=== PATIENT | female | born 1975 | race Caucasian/White ===

== ENCOUNTER 2018-06-02 10:06 | Emergency (ER) | payer OTHER ==
[2018-06-02] MEDS ORDERED: NS 1,000 ML IV ONE (10:21)
[2018-06-02] MEDS ORDERED: CLINDAMYCIN 600 MG/DEXTROSE 50 ML IV ONE (10:24)
[2018-06-02] MEDS ORDERED: DEXAMETHASONE 10 MG/ML VIAL IVP ONE (10:24)
--- NOTE | 2018-06-02 10:24 | EDPHY ---
H & P Stated Complaint: l lower molar inf/needs root cnal on abx continuing malaise and fever Time Seen by Provider: 06/02/18 10:13 HPI/ROS: CHIEF COMPLAINT: Possible dental infection HISTORY OF PRESENT ILLNESS: 43-year-old immunocompetent female states that 3 days ago she was seen by her dentist for concerns over left mandibular pain, swelling, they recommend she go to the ER at that time which she declined. She is given Augmentin. Since yesterday afternoon she notes subjective fever, flu- like symptoms. No influenza vaccination this season. The edema of the left submandibular space continues. No change in voice. No trismus no drooling. REVIEW OF SYSTEMS: 10 systems reviewed and negative with the exception of the elements mentioned in the history of present illness PAST MEDICAL & SURGICAL HISTORY: [no influenza vaccination SOCIAL HISTORY: Nonsmoker PHYSICAL EXAM (Prior to examination, patient consented to physical exam, hands were washed and my usual and customary physical exam procedures followed) 1) GENERAL: Well-developed, well-nourished, alert and oriented. Appears to be in no acute distress. 2) HEAD: Normocephalic, atraumatic 3) HEENT: Pupils equal, round, reactive to light bilaterally. Sclera anicteric. Nasopharynx, oropharynx, clear, no lesions. Moist Mucous membranes. Sublingual space is soft with no evidence of David's angina. Submental space is soft. Ears bilaterally with normal tympanic membranes. 4) NECK: Full range of motion, no meningeal signs. Soft tissue swelling, tender , indurated left submandibular space. 5) LUNGS: Clear auscultation bilaterally, no wheezes, no rhonchi, no retractions. 6) HEART: Regular rate and rhythm, no murmur, no heave, no gallop. 7) ABDOMEN: No guarding, no rebound, no focal tenderness, negative McBurney's, negative Ventura's, negative Rovsing's, negative peritoneal sign, 8) MUSCULOSKELETAL: Moving all extremities, no focal areas of tenderness, no obvious trauma. No peripheral edema or discoloration. 9) BACK: No CVA tenderness, no midline vertebral tenderness, no fluctuance, no step-off, no obvious trauma, no visual or palpable abnormality. 10) SKIN: No rash, no petechiae. 11) Psychiatric: Patient is oriented X 3, there is no agitation. DIFFERENTIAL DIAGNOSIS: In no particular order including but limited to odontogenic infection, David's angina, abscess - Personal History LMP (Females 10-55): 1-7 Days Ago Current Tetanus Diphtheria and Acellular Pertussis (TDAP): Yes - Medical/Surgical History Hx Asthma: No Hx Chronic Respiratory Disease: No Hx Diabetes: No Hx Cardiac Disease: No Hx Renal Disease: No Hx Cirrhosis: No Hx Alcoholism: No Hx HIV/AIDS: No Hx Splenectomy or Spleen Trauma: No Other PMH: DENIES - Social History Smoking Status: Never smoked Constitutional: Initial Vital Signs Temperature (C) 36.6 C 06/02/18 10:10 Heart Rate 77 06/02/18 10:10 Respiratory Rate 18 06/02/18 10:10 Blood Pressure 126/87 H 06/02/18 10:10 O2 Sat (%) 98 06/02/18 10:10 O2 Delivery Mode Room Air Allergies/Adverse Reactions: atovaquone [From Malarone] Allergy (Verified 06/02/18 10:09) proguanil [From Malarone] Allergy (Verified 06/02/18 10:09) Home Medications: Medication Instructions Recorded Augmentin 875 MG TAB (*) 06/02/18 Clindamycin HCl [Clindamycin] 300 mg PO TID 7 Days cap 06/02/18 ED Images - Head Chin: 1 - Edema, tender, indurated Medical Decision Making - Diagnostics Imaging Results: Imaging Impressions Neck CT 06/02/18 11:24 Impression: 1. No evidence of mass or lymphadenopathy within the neck. 2. Erosion around left molar tooth at the mandible level compatible with dental disease in region of soft tissue swelling. 3. Normal-appearing parotid and submandibular glands bilaterally. Findings discussed with Latonia ALEX at 12:05 hour, 06/02/2018. Images reviewed myself ED Course/Re-evaluation: 10:24 a.m.: Will obtain influenza testing. Will also obtain CT imaging of the neck evaluate possible abscess. No evidence of airway compromise at this time. Care of patient under supervision of secondary supervising physician Dr Benjamin with whom I discussed case. 12:13 p.m.: Re-evaluation. Discussed her imaging results showing no focal abscess. On exam doubt David's angina. This time I do not think that hospitalization or emergent ENT consultation is indicated. She continues to maintain her airway well. She has been given dose of IV clindamycin and Decadron in the ER. Recommend she follow up with her dentist either later today or tomorrow. In the meantime given my usual and customary ENT precautions instructions. She feels comfortable being discharged. She already has a prescription for Augmentin. Given prescription for clindamycin. - Data Points Laboratory Results: Laboratory Results 06/02/18 10:28 06/02/18 10:28 06/02/18 06/02/18 06/02/18 10:54 10:28 10:28 WBC RBC Hgb Hct MCV MCH MCHC RDW Plt Count MPV Neut % (Auto) Lymph % (Auto) Bee % (Auto) Eos % (Auto) Baso % (Auto) Nucleat RBC Rel Count Absolute Neuts (auto) Absolute Lymphs (auto) Absolute Monos (auto) Absolute Eos (auto) Absolute Basos (auto) Absolute Nucleated RBC Immature Gran % Immature Gran # Sodium 135 mEq/L mEq/L (135-145) Potassium 4.0 mEq/L mEq/L (3.5-5.2) Chloride 108 mEq/L mEq/L (97-110) Carbon Dioxide 19 mEq/l L mEq/l (22-31) Anion Gap 8 mEq/L mEq/L (6-14) BUN 16 mg/dL mg/dL (7-23) Creatinine 0.6 mg/dL mg/dL (0.6-1.0) Estimated GFR > 60 Glucose 104 mg/dL H mg/dL (70-100) Calcium 9.4 mg/dL mg/dL (8.5-10.4) Beta HCG, Qual NEGATIVE Nasal Influenza A PCR NEGATIVE FOR FLU A (NEGATIVE) Nasal Influenza B PCR NEGATIVE FOR FLU B (NEGATIVE) 06/02/18 10:28 WBC 11.07 10^3/uL H 10^3/uL (3.80-9.50) RBC 4.77 10^6/uL 10^6/uL (4.18-5.33) Hgb 14.9 g/dL g/dL (12.6-16.3) Hct 44.2 % % (38.0-47.0) MCV 92.7 fL fL (81.5-99.8) MCH 31.2 pg pg (27.9-34.1) MCHC 33.7 g/dL g/dL (32.4-36.7) RDW 14.0 % % (11.5-15.2) Plt Count 286 10^3/uL 10^3/uL (150-400) MPV 10.4 fL fL (8.7-11.7) Neut % (Auto) 82.8 % H % (39.3-74.2) Lymph % (Auto) 12.0 % L % (15.0-45.0) Bee % (Auto) 4.3 % L % (4.5-13.0) Eos % (Auto) 0.1 % L % (0.6-7.6) Baso % (Auto) 0.4 % % (0.3-1.7) Nucleat RBC Rel Count 0.0 % % (0.0-0.2) Absolute Neuts (auto) 9.17 10^3/uL H 10^3/uL (1.70-6.50) Absolute Lymphs (auto) 1.33 10^3/uL 10^3/uL (1.00-3.00) Absolute Monos (auto) 0.48 10^3/uL 10^3/uL (0.30-0.80) Absolute Eos (auto) 0.01 10^3/uL L 10^3/uL (0.03-0.40) Absolute Basos (auto) 0.04 10^3/uL 10^3/uL (0.02-0.10) Absolute Nucleated RBC 0.00 10^3/uL 10^3/uL (0-0.01) Immature Gran % 0.4 % % (0.0-1.1) Immature Gran # 0.04 10^3/uL 10^3/uL (0.00-0.10) Sodium Potassium Chloride Carbon Dioxide Anion Gap BUN Creatinine Estimated GFR Glucose Calcium Beta HCG, Qual Nasal Influenza A PCR Nasal Influenza B PCR Medications Given: Discontinued Medications Dexamethasone (Decadron Injection) 10 mg IVP EDNOW ONE Stop: 06/02/18 10:25 Last Admin: 06/02/18 10:32 Dose: 10 mg Sodium Chloride (Ns) 1,000 mls @ 0 mls/hr IV ONCE ONE PRN Reason: Wide Open Stop: 06/02/18 10:22 Last Admin: 06/02/18 10:34 Dose: 1,000 mls Clindamycin Phosphate/Dextrose (Cleocin 600 Mg (Premix)) 50 mls @ 100 mls/hr IV EDNOW ONE PRN Reason: Protocol Stop: 06/02/18 10:53 Last Admin: 06/02/18 10:34 Dose: 50 mls Departure - Departure Disposition: Home, Routine, Self-Care Clinical Impression: Infection of tooth Condition: Good Instructions: Toothache (ED) Additional Instructions: Return to the ER immediately if you cannot swallow, have drooling, fevers, neck stiffness, cannot open your jaw, or any other symptoms that concern you. Referrals: Dean Mcguire DDS [Doctor of Dental Surgery] - As per Instructions Prescriptions: Clindamycin HCl [Clindamycin] 300 mg PO TID 7 Days cap
[2018-06-02] MEDS ORDERED: DEXAMETHASONE 4 MG/ML VIAL ONE (10:30)
[2018-06-02 10:40] LABS: PLATELET COUNT 286 10^3/uL (150-400)
[2018-06-02] MEDS ORDERED: IOPAMIDOL (ISOVUE 370) 100 ML BTL IV ONE (11:30)
[2018-06-02 12:33] VITALS: BP 134/90
== END 2018-06-02 12:33 | disposition home or self-care (01) ==
DX: K04.7 Periapical abscess without sinus (principal)
CPT/HCPCS: 96374; J1100; Q9967